=== PATIENT | male | born 1970 | race African-American/Black ===

== ENCOUNTER 2020-11-22 09:29 | Emergency (ER) | payer MEDICAID, SELFPAY ==
--- NOTE | ~2020-11-22 | XR_ITS ---
EXAMINATION: XR SHOULDER, RIGHT CLINICAL INFORMATION: Right shoulder pain COMPARISON: None TECHNIQUE: AP external rotation, Grashey, scapular Y, and axillary views of the right shoulder. FINDINGS: The bones and soft tissues are normal. No fracture. Glenohumeral and acromioclavicular alignment is anatomic with normal joint space. No abnormal soft tissue calcifications. XR/XR shoulder RT min 2V IMPRESSION: Normal right shoulder.
[2020-11-22 09:31] VITALS: BP 151/83; PULSE 78; RESP 16; TEMP 36.6; O2SAT 98; BMI 31.2
--- NOTE | 2020-11-22 09:56 | ED.EXTPRO ---
HPI - Extremity Problem General Chief complaint: Extremity Injury, Upper Stated complaint: rt shoulder pain Time Seen by Provider: 11/22/20 09:52 Source: patient Mode of arrival: ambulatory Limitations: no limitations History of Present Illness HPI Narrative: Patient presents to ED for right shoulder pain that has worsened the past 4 days. Patient states he fell on his right shoulder 2 months ago and since has had pain. He denies any recent trauma,. Patient states no swelling of extremity, redness, hotness, coldness, bluish discoloration of extremity, chest pain, shortness of breath, fever, chills, or any mass. Patient denies any history of any blood clots. patient denies any recent surgery, recent trauma, estrogen hormonal use, chest pain, or shortness of breath. Patient denies any recent long travel. MD Complaint: joint swelling (shoulder) Related Data Previous Rx's Medication Instructions Recorded lidocaine [Aspercreme (lidocaine 1 patch TOPICAL DAILY PRN #10 ea 11/22/20 HCl)] naproxen 500 mg PO BID PRN #20 tab 11/22/20 Allergies Allergy/AdvReac Type Severity Reaction Status Date / Time lisinopril Allergy Anaphylaxis Verified 11/22/20 09:45 Review of Systems Review of Systems: Yes all other systems are reviewed and are negative Constitutional: Constitutional: Reports as per HPI and Reports no additional constitutional complaints Eyes: Eyes: Reports as per HPI and Reports no additional eye complaints ENT: Reports system reviewed and no additional complaints, except as documented and Reports as per HPI Cardiovascular: Cardiovascular: Reports as per HPI and Reports no additional cardiovascular complaints Respiratory: Respiratory: Reports as per HPI and Reports no additional respiratory complaints Gastrointestinal: Gastrointestinal: Reports as per HPI and Reports no additional gastrointestinal complaints Genitourinary: Genitourinary: Reports no additional male genitourinary complaints and Reports as per HPI Musculoskeletal: Musculoskeletal: Reports no additional musculoskeletal complaints, Reports as per HPI and Reports arthralgias (Right shoulder pain) Neurologic: Reports system reviewed and no additional complaints, except as documented and Reports as per HPI Psychiatric: Psychiatric: Reports no additional psychiatric complaints and Reports as per HPI [facility] Past Medical History Medical History (Updated 11/22/20 @ 11:11 by PABLO Castellano) HTN (hypertension) Social History Social History Advance Directives: No Advance Directives Information Provided: No Physical Exam Vital Signs: Vital Signs: Last Vital Signs Temp 98 F 11/22/20 09:31 Pulse 78 11/22/20 09:31 Resp 16 11/22/20 09:31 BP 151/83 H 11/22/20 09:31 Pulse Ox 98 11/22/20 09:31 Body Mass Index 31.2 Const: General: cooperative, healthy appearing, comfortable, no acute distress, well developed, alert, awake and Physically active Orientation/consciousness: patient oriented x3 HENMT: Head: Yes normal to inspection, Yes No palpable skull fracture present, Yes normocephalic, Yes atraumatic and No abrasion Eyes: General: appearance normal, both eyes and all related structures Neck: Neck: Yes normal visual inspection, Yes full ROM, Yes no meningeal signs, Yes trachea midline, Yes supple and No tender Chest: Chest palpation & inspection: normal inspection of the chest and normal palpation of entire chest wall Resp: Effort & Inspection: normal respiratory effort and able to speak in complete sentences Auscultation: clear to auscultation bilaterally Cardio: Jugular venous distension: no JVD Heart sounds: S1 normal heart sound present and S2 normal heart sound present GI: Inspection: Yes normal to inspection and No abdominal wall ecchymosis Palpation (GI): Soft to palpation, not firm, nontender, no guarding and not rigid : General: No CVA tenderness Back/Spine/Pelvis: Back: no CVA tenderness, No CVA tenderness and No back tenderness Skin: General skin exam: no rashes or lesions noted and elasticity normal Neuro: General: patient oriented x3, gait normal, no meningeal signs and CN's II-XI intact bilaterally Cranial nerves: Yes CN's II-XII intact bilaterally Extrem: General: Yes normal to inspection and Yes full ROM Shoulder/upper arm images: 1. Area of tenderness on palpation. Right upper extremity negative for any swelling, redness, warmth, hotness, mass on palpation, coolness, red streaks, or any deformities. Motor/neuro/vascular exam intact. Positive for posterior right shoulder scar from previous surgery in the past. Psych: Appearance: grossly normal, well kempt and not disheveled Course Course Course Narrative: Patient will have right shoulder x-ray. Patient requesting lidocaine patch Reevaluation(s) Reevaluation #1: X-ray negative for fracture. Patient will follow-up with orthopedic for possible MRI due to history of shoulder surgery and having chronic right shoulder pain since trauma 2 months ago. Time: 11:05 MDM - Extremity (Nontraumatic) MDM Narrative Medical decision making narrative: Shoulder pain Discharge Plan Discharge Clinical Impression: Chronic right shoulder pain Patient Disposition: Home, Self-Care Instructions: Shoulder Pain (ED) Additional Instructions: Return to the ED for right upper extremity swelling, redness, blue discoloration, red streaks, fever, chills, mass, coldness, hotness, paralysis, weakness, tingling, or any other concerning symptoms. X-rays came back normal. Prescriptions: New lidocaine [Aspercreme (lidocaine HCl)] 4 % adhesive patch,medicated 1 patch topical DAILY PRN (Reason: pain) Qty: 10 RF: 0 naproxen 500 mg tablet 500 mg PO BID PRN (Reason: pain) Qty: 20 RF: 0 Referrals: Joshua Cantrell PA-C [Physician Guest Relations Receptionist] - 2 days (Chronic right shoulder pain. History of shoulder surgery in the past. May need MRI) Interventions: ED Discharge Assessment Last Done: 11/22/20 11:29 Discharge Date/Time: 11/22/20 11:29 Print Language: Turkmen
[2020-11-22] MEDS: Lidocaine 4 % Patch ADH..PATCH 1 PATCH TRANSDERMA (10:25)
== END 2020-11-22 11:29 | disposition home or self-care (01) ==
PROVIDERS: Emergency Provider Emergency Medicine
DX: G89.29 Other chronic pain (principal); M25.511 Pain in right shoulder; I10 Essential (primary) hypertension
CPT/HCPCS: 73030; 99283

== ENCOUNTER 2021-03-04 17:36 | Emergency (ER) | payer MEDICAID, SELFPAY ==
[2021-03-04 18:00] VITALS: BP 144/70; BP 154/87; PULSE 83; PULSE 92; RESP 16; TEMP 37.1; O2SAT 100; O2SAT 99; BMI 33.5
--- NOTE | 2021-03-04 18:43 | MHC.RECOVSUP ---
? Reason for consult Recovery support o Current location: [facility] o Identified substance use concern: [place] <del>-</del> <del>Overdose</del> <del>-</del> <del>Withdrawal</del> <del>-</del> <del>Seeking</del> <del>ATS</del> <del>(detox)</del> - Support ? Intervention: <del>o</del> <del>ATS</del> <del>bed</del> <del>search</del> <del>started/completed/in</del> <del>process</del> <del>o</del> <del>MAT</del> <del>started</del> <del>or</del> <del>to</del> <del>be</del> <del>started</del> o Community resources provided o Harm reduction discussion ? Plan: <del>o</del> <del>Referral</del> <del>to</del> <del>[facility]</del> <del>o</del> <del>Bed</del> <del>search</del> <del>in</del> <del>progress</del> <del>to</del> <del>o</del> <del>Follow</del> <del>up</del> <del>tomorrow</del> o Patient awaiting crisis evaluation o Patient to follow up with [facility] after discharge ? Additional information: Patient is waiting to be seen by N, After evaluation we would be ready to assist Patient with further Recovery treatment. I reported the situation to the care team to follow up with patient in the Morning...
[2021-03-04 19:31] LABS: COVID-19 Test Negative (Negative)
--- NOTE | 2021-03-04 19:55 | ED.PSYCH ---
HPI - Psych General Chief Complaint: Psychiatric Symptoms Stated Complaint: SI Source: patient Mode of arrival: ambulatory Limitations: no limitations History of Present Illness HPI Narrative: Patient presents to ED for depression and thoughts of hurting others and hurting himself. Patient denies any suicidal ideation, but he states he had thoughts of attempting a robbery on a drug dealer so he either he could be killed or he killed the robber. Patient was seen at [facility] ER this morning, evaluated by [facility] was discharged. Patient states she is homeless. Patient states he lost his job since last year May. Patient states he went back on a crack binge. MD complaint: feels depressed Related Data Home Medications Medication Instructions Recorded Confirmed chlorthalidone 25 mg tablet 1 tab PO DAILY 03/04/21 03/04/21 Previous Rx's Medication Instructions Recorded lidocaine 4 % topical patch 1 patch TOPICAL DAILY PRN #10 ea 11/22/20 (Aspercreme (lidocaine)) naproxen 500 mg tablet 500 mg PO BID PRN #20 tab 11/22/20 Allergies Allergy/AdvReac Type Severity Reaction Status Date / Time lisinopril Allergy Anaphylaxis Verified 11/22/20 09:45 Review of Systems Review of Systems: Yes all other systems are reviewed and are negative Constitutional: Constitutional: Reports as per HPI and Reports no additional constitutional complaints Eyes: Eyes: Reports as per HPI and Reports no additional eye complaints ENT: Reports system reviewed and no additional complaints, except as documented and Reports as per HPI Cardiovascular: Cardiovascular: Reports as per HPI and Reports no additional cardiovascular complaints Respiratory: Respiratory: Reports as per HPI and Reports no additional respiratory complaints Gastrointestinal: Gastrointestinal: Reports as per HPI and Reports no additional gastrointestinal complaints Musculoskeletal: Musculoskeletal: Reports no additional musculoskeletal complaints and Reports as per HPI Neurologic: Reports system reviewed and no additional complaints, except as documented and Reports as per HPI Psychiatric: Psychiatric: Reports no additional psychiatric complaints, Reports as per HPI and Reports depression [facility] Past Medical History Medical History (Updated 03/04/21 @ 22:12 by PABLO Castellano) HTN (hypertension) Social History Social History Advance Directives: No Advance Directives Information Provided: No Physical Exam Vital Signs: Vital Signs: Last Vital Signs Temp 98.7 F 03/04/21 18:00 Pulse 83 03/04/21 18:00 Resp 16 03/04/21 18:00 BP 154/87 H 03/04/21 18:00 Pulse Ox 100 03/04/21 18:00 Body Mass Index 33.5 Const: General: cooperative, healthy appearing, comfortable, no acute distress, well developed, alert, awake and Physically active Orientation/consciousness: patient oriented x3 HENMT: Head: Yes normal to inspection, Yes No palpable skull fracture present, Yes normocephalic, Yes atraumatic and No abrasion Eyes: General: appearance normal, both eyes and all related structures Neck: Neck: Yes normal visual inspection, Yes full ROM, Yes no lymphadenopathy, Yes no meningeal signs, Yes trachea midline, Yes supple and No tender Chest: Chest palpation & inspection: normal inspection of the chest and normal palpation of entire chest wall Resp: Effort & Inspection: normal respiratory effort and able to speak in complete sentences Cardio: Jugular venous distension: no JVD Heart sounds: S1 normal heart sound present and S2 normal heart sound present GI: Inspection: Yes normal to inspection and No abdominal wall ecchymosis Palpation (GI): Soft to palpation, not firm, nontender, no guarding and not rigid : General: No CVA tenderness and Yes no CVA tenderness Back/Spine/Pelvis: Back: no CVA tenderness, No CVA tenderness and No back tenderness Skin: General skin exam: no rashes or lesions noted and elasticity normal Neuro: General: patient oriented x3, gait normal, no meningeal signs and CN's II-XI intact bilaterally Cranial nerves: Yes CN's II-XII intact bilaterally Extrem: General: Yes normal to inspection and Yes full ROM Psych: Appearance: grossly normal, well kempt and not disheveled Course Course Course Narrative: Patient will be evaluated by [employer]. BRAVO ordered. Reevaluation(s) Reevaluation #1: Evaluated by [facility] consulting states patient is safe for discharge. Patient is not actively suicidal or homicidal. Patient refused respite and partial hospitalization. Patient does not meet criteria for inpatient admission. Patient will be able to sleep overnight will be discharged in the morning. Patient agreeable to sleep overnight and leaving the morning.Sign out to Dr. Yasmani Rodriguez for discharge in the morning. Time: 22:06 MDM - Psych MDM Narrative Medical decision making narrative: Substance abuse Lab Data Labs: Lab Results 03/04/21 03/04/21 Range/Units 19:06 19:55 Urine Opiates Screen Not Detected (Not Detect) Urine Fentanyl Screen Not Detected (Not Detect) Ur Barbiturates Screen Not Detected (Not Detect) Ur Phencyclidine Scrn POSITIVE H (Not Detect) Ur Amphetamines Screen Not Detected (Not Detect) U Benzodiazepines Scrn Not Detected (Not Detect) Urine Cocaine Screen POSITIVE H (Not Detect) U Marijuana (THC) Screen Not Detected (Not Detect) COVID-19 (PAVEL) Negative (Negative) COVID-19 Clin Com See Note Discharge Plan Discharge Clinical Impression: Substance abuse Patient Disposition: Home, Self-Care Instructions: Polysubstance Abuse (ED) Additional Instructions: Return to the ED for any suicidal/homicidal ideation, auditory/visual hallucinations, any physical complaints, or any other concerning symptoms. Please follow-up with PCP. Prescriptions: No Action lidocaine [Aspercreme (lidocaine HCl)] 4 % adhesive patch,medicated 1 patch topical DAILY PRN (Reason: pain) Qty: 10 RF: 0 naproxen 500 mg tablet 500 mg PO BID PRN (Reason: pain) Qty: 20 RF: 0 chlorthalidone 25 mg tablet 1 tab PO DAILY RF: 0 Print Language: Macedonian
[2021-03-04 20:29] LABS: Amphetamine Screen Urine Not Detected (Not Detect); Barbiturates, Urine Not Detected (Not Detect); Benzodiazepines Screen Urine Not Detected (Not Detect); Cannabinoid Screen Urine Not Detected (Not Detect); Cocaine Screen Urine POSITIVE (Not Detect); Fentanyl, urine Not Detected (Not Detect); Opiate Screen Urine Not Detected (Not Detect); Phencyclidine Screen Urine POSITIVE (Not Detect)
--- NOTE | 2021-03-05 06:36 | PC.NURSE ---
Patient slept through the night, no distress observed/reported, [facility] assessed the patient, patient refused respite plan, per patient does not require inpatient level of care, patient agreed to d/c plan in the morning, if he needs he can either go to N office or call [facility] for help, provider aware, d/c paper ready, will continue to monitor,
--- NOTE | 2021-03-05 09:34 | PC.NURSE ---
PT TOOK A SHOWER PRIOR TO D/C HOME .
--- NOTE | 2021-03-05 10:00 | PC.NURSE ---
PT IS IN COMMON AREA SPEAKING WITH GHAZAL (CARE TEAM)
[2021-03-05 10:18] VITALS: BP 145/109
--- NOTE | 2021-03-05 10:40 | PC.NURSE ---
PER PABLO (JANUARY) AND GHAZAL (CARE TEAM), CARE TEAM WILL BE FOLLOWING UP WITH [facility] TO SEE IF THERE ARE ANY ADDITIONAL SERVICES SUCH RESPITE THAT WOULD BE AVAILABLE TO THE PT. PT D/C IS ON HOLD AT THIS TIME. PT HAS BEEN CHANGED OVER TO [facility] WITH SECURITY IN ATTENDANCE AND ALL BELONGINGS CHECKED AND LOCKED IN LOCKER. PT IS AWARE OF PLAN OF CARE.
[2021-03-05 11:44] VITALS: BP 153/103; PULSE 82; RESP 14; TEMP 36.8; O2SAT 100
--- NOTE | 2021-03-05 11:48 | PC.NURSE ---
New smart sheet sent to [facility]. Per Melissa from Care team there is a pushback at [facility] to send the report of their eval. There is the question of need for re-eval at this time. Pt resting quietly in his bed, NAD, resp reg and even.
[2021-03-05 13:39] VITALS: BP 140/97
--- NOTE | 2021-03-05 13:46 | MHC.CARE ---
When patient was discharging this morning he asked to speak with a clinician. CARE Team met with patient in the common area behind the nurse's station. He stated that he feels certain that he would commit suicide if discharged at this time. Acknowledged that he was not engaged with the [facility] clinician last evening, denied being offered CCS (Respite), patient said he believes he needs a mood stabilizer and does not have any outpatient providers. Discussed PHP and referrals to therapy and psychiatry, patient continued to endorse suicidal ideation with plan to get shot by someone in the community. Communicated with ED provider, RN and fast food supervisor. By report, [facility] explained to provider yesterday that this is patient's baseline behavior. CARE Team reached out to [facility] Crisis to obtain patient's written assessment
== END 2021-03-05 16:01 | disposition home or self-care (01) ==
PROVIDERS: Physician Assistant; Emergency Provider Emergency Medicine
DX: F33.1 Major depressive disorder, recurrent, moderate (principal); R45.851 Suicidal ideations; F14.10 Cocaine abuse, uncomplicated; Z20.822 Contact with and (suspected) exposure to COVID-19; Z79.899 Other long term (current) drug therapy
CPT/HCPCS: 36415; 80307; 87635; 99284

== ENCOUNTER 2021-03-08 03:24 | Emergency (ER) | payer MEDICAID, SELFPAY ==
[2021-03-08 03:31] VITALS: BP 156/96; PULSE 80; PULSE 97; RESP 16; TEMP 36.8; O2SAT 97; BMI 30.9
--- NOTE | 2021-03-08 03:39 | ED_ITS ---
HPI - Psych General Chief Complaint: ETOH/Substance Use <Juan F Wright MD - Last Filed: 03/08/21 05:47> Stated Complaint: ETOH INTOX <Juan F Wright MD - Last Filed: 03/08/21 05:47> Time Seen by Provider: 03/08/21 03:38 <Juan F Wright MD - Last Filed: 03/08/21 05:47> Source: patient <Juan F Wright MD - Last Filed: 03/08/21 05:47> Mode of arrival: ambulatory <Juan F Wright MD - Last Filed: 03/08/21 05:47> Limitations: no limitations <Juan F Wright MD - Last Filed: 03/08/21 05:47> History of Present Illness HPI Narrative: Patient with increased depression and feels anxious. New family stress. Patient with shoulder and knee problems. Patient with auditory hallucinations <Juan F Wright MD - Last Filed: 03/08/21 05:47> MD complaint: suicidal ideation <Juan F Wright MD - Last Filed: 03/08/21 05:47> Onset (ago): day(s) <Juan F Wright MD - Last Filed: 03/08/21 05:47> Duration: intermittent <Juan F Wright MD - Last Filed: 03/08/21 05:47> Context: recent alcohol abuse <Juan F Wright MD - Last Filed: 03/08/21 05:47> Associated symptoms: denies other symptoms <Juan F Wright MD - Last Filed: 03/08/21 05:47> Related Data Home Medications: Home Medications Medication Instructions Recorded Confirmed chlorthalidone 25 mg tablet 1 tab PO DAILY 03/04/21 03/08/21 Previous Rx's Medication Instructions Recorded lidocaine 4 % topical patch 1 patch TOPICAL DAILY PRN #10 ea 11/22/20 (Aspercreme (lidocaine)) naproxen 500 mg tablet 500 mg PO BID PRN #20 tab 11/22/20 <Juan F Wright MD - Last Filed: 03/08/21 05:47> Allergies/Adverse Reactions: Allergies Allergy/AdvReac Type Severity Reaction Status Date / Time lisinopril Allergy Anaphylaxis Verified 11/22/20 09:45 <Juan F Wright MD - Last Filed: 03/08/21 05:47> Review of Systems Constitutional: Constitutional: Reports no additional constitutional com plaints <Juan F Wright MD - Last Filed: 03/08/21 05:47> Eyes: Eyes: Reports no additional eye complaints <Juan F Wright MD - Last Filed: 03/08/21 05:47> ENT: Denies dizziness <Juan F Wright MD - Last Filed: 03/08/21 05:47> Cardiovascular: Cardiovascular: Reports no additional cardiovascular complaints <Juan F Wright MD - Last Filed: 03/08/21 05:47> Respiratory: Respiratory: Reports as per HPI <Juan F Wright MD - Last Filed: 03/08/21 05:47> Gastrointestinal: Gastrointestinal: Reports no additional gastrointestinal complaints <Juan F Wright MD - Last Filed: 03/08/21 05:47> Musculoskeletal: Musculoskeletal: Reports no additional musculoskeletal complaints <Juan F Wright MD - Last Filed: 03/08/21 05:47> Integumentary/Breasts: Skin/Breast: Denies rash <Juan F Wright MD - Last Filed: 03/08/21 05:47> Neurologic: Reports system reviewed and no additional complaints, except as documented, Denies dizziness and Denies Sensory deficit (Neuro) <Juan F Wright MD - Last Filed: 03/08/21 05:47> Psychiatric: Psychiatric: Reports anxiety <Juan F Wright MD - Last Filed: 03/08/21 05:47> [facility] Past Medical History Medical History: Medical History HTN (hypertension) <Juan F Wright MD - Last Filed: 03/08/21 05:47> Social History Social History: Social History Advance Directives: No Advance Directives Information Provided: Yes <Juan F Wright MD - Last Filed: 03/08/21 05:47> Physical Exam Vital Signs: Vital Signs: Last Vital Signs Temp 98.2 F 03/08/21 09:56 Pulse 89 03/08/21 09:56 Resp 18 03/08/21 09:56 BP 137/88 03/08/21 09:56 Pulse Ox 97 03/08/21 09:56 Body Mass Index 30.9 <Juan F Wright MD - Last Filed: 03/08/21 05:47> Vital Signs: Last Vital Signs Temp 98.2 F 03/08/21 09:56 Pulse 89 03/08/21 09:56 Resp 18 03/08/21 09:56 BP 137/88 03/08/21 09:56 Pulse Ox 97 03/08/21 09:56 Body Mass Index 30.9 <PABLO Chase - Last Filed: 03/08/21 12:11> Const: General: healthy appearing <Juan F Wright MD - Last Filed: 03/08/21 05:47> Nutritional Appearance: average body habitus <Juan F Wright MD - Last Filed: 03/08/21 05:47> Orientation/consciousness: oriented to person and patient oriented x3 <Juan F Wright MD - Last Filed: 03/08/21 05:47> Limitations: no limitations <Juan F Wright MD - Last Filed: 03/08/21 05:47> HENMT: Head: Yes normal to inspection <Juan F Wright MD - Last Filed: 03/08/21 05:47> Ears: external ears normal <Juan F Wright MD - Last Filed: 03/08/21 05:47> General nose exam: Normal external nose present <Juan F Wright MD - Last Filed: 03/08/21 05:47> Mouth: Normal oral and palatal mucosa present and oropharynx normal <Juan F Wright MD - Last Filed: 03/08/21 05:47> Throat: Yes posterior oropharynx normal <Juan F Wright MD - Last Filed: 03/08/21 05:47> Eyes: General: appearance normal, both eyes and all related structures <Juan F Wright MD - Last Filed: 03/08/21 05:47> Neck: Other: supple <Juan F Wright MD - Last Filed: 03/08/21 05:47> Neck: Yes normal visual inspection <Juan F Wright MD - Last Filed: 03/08/21 05:47> Chest: Chest palpation & inspection: normal inspection of the chest <Juan F Wright MD - Last Filed: 03/08/21 05:47> Resp: Auscultation: clear to auscultation bilaterally <Juan F Wright MD - Last Filed: 03/08/21 05:47> Cardio: Jugular venous distension: no JVD <Juan F Wright MD - Last Filed: 03/08/21 05:47> Rate: regular rate <Juan F Wright MD - Last Filed: 03/08/21 05:47> Rhythm: regular rhythm <Juan F Wright MD - Last Filed: 03/08/21 05:47> Heart sounds: S1 normal heart sound present and S2 normal heart sound present <Juan F Wright MD - Last Filed: 03/08/21 05:47> GI: Inspection: Yes normal to inspection <Juan F Wright MD - Last Filed: 03/08/21 05:47> Palpation (GI): Soft to palpation, nontender and No hepatosplenomegaly present <Juan F Wright MD - Last Filed: 03/08/21 05:47> Auscultation: normal bowel sounds <Juan F Wright MD - Last Filed: 03/08/21 05:47> : General: Yes no CVA tenderness <Juan F Wright MD - Last Filed: 03/08/21 05:47> Back/Spine/Pelvis: Back: no CVA tenderness <Juan F Wright MD - Last Filed: 03/08/21 05:47> Skin: General skin exam: no rashes or lesions noted <Juan F Wright MD - Last Filed: 03/08/21 05:47> Neuro: General: oriented to person and patient oriented x3 <Juan F Wright MD - Last Filed: 03/08/21 05:47> Cranial nerves: Yes CN's II-XII intact bilaterally <Juan F Wright MD - Last Filed: 03/08/21 05:47> Motor exam (neuro): 5/5 motor strength present throughout <Juan F Wright MD - Last Filed: 03/08/21 05:47> Sensory Exam: No Sensory deficit (Neuro) <Juan F Wright MD - Last Filed: 03/08/21 05:47> Extrem: General: Yes normal to inspection <Juan F Wright MD - Last Filed: 03/08/21 05:47> Psych: Appearance: grossly normal <Juan F Wright MD - Last Filed: 03/08/21 05:47> Course Reevaluation(s) Reevaluation #1: Patient placed in physician observation at 6am The indication for obse rvation is that the patient needs more time to see if his depression improves or he will need to be admitted. At this time the patient is well developed well nourished, lungs clear, CV RRR, abd nontender, neuro is intact <Juan F Wright MD - Last Filed: 03/08/21 05:47> Time: 05:47 <Juan F Wright MD - Last Filed: 03/08/21 05:47> Reevaluation #2: Patient seen by CARE team. He is not suicidal at this time. He is depressed. Admits to drinking occasionally but says he's not an addict and does not want recovery services. Phil made referrals to [facility] and partial program which he is agreeable to. At this time he is stable for discharge with outpatient services. Physician observation discontinued at this time. Dispo is to home. <PABLO Chase - Last Filed: 03/08/21 12:11> Time: 12:08 <PABLO Chase - Last Filed: 03/08/21 12:11> MDM - Psych Lab Data Result diagrams: : 03/08/21 03:58 03/08/21 03:58 <Juan F Wright MD - Last Filed: 03/08/21 05:47> Labs: Lab Results 03/08/21 03/08/21 03/08/21 Range/Units 03:58 03:58 03:58 WBC 8.3 (4.8-10.8) X10*3/uL RBC 5.60 (4.60-5.80) X10*6/uL Hgb 16.6 (14.0-18.0) g/dl Hct 47.9 (42-52) % MCV 85.5 (80-98) fL MCH 29.6 (27.0-33.0) pg MCHC 34.7 (31.0-36.0) g/dl RDW 12.8 (11.0-16.0) % Plt Count 275 (160-400) X10*3/uL MPV 10.5 (9.4-12.4) fL Immature Gran % (Auto) 0.1 (0.0-0.4) % Neut % (Auto) 64.9 (45-73) % Lymph % (Auto) 23.1 (20-40) % [place] % (Auto) 8.3 (2-11) % Eos % (Auto) 2.8 (0-4) % Baso % (Auto) 0.8 (0-2) % Lymph # (Auto) 1.9 (1.2-4.9) X10*3/uL [place] # (Auto) 0.7 (0.1-1.2) X10*3/uL Eos # (Auto) 0.2 (0.0-0.4) X10*3/uL Baso # (Auto) 0.1 (0.0-0.2) X10*3/uL Abs Immat Gran (auto) 0.01 (0.00-0.03) X10*3/uL Absolute Neuts (auto) 5.4 (2.0-8.3) X10*3/uL Absolute Nucleated RBC 0.000 (0.0-0.012) X10*3/uL Nucleated RBC % (auto) 0.0 (0.0-0.2) /100WBC Sodium 139 (135-145) mmol/L Potassium 3.8 (3.3-5.1) mmol/L Chloride 99 (96-108) mmol/L Carbon Dioxide 28 (22-29) mmol/L Anion Gap 16 (12-20) BUN 13 (9-16) mg/dL Creatinine 1.43 H (0.5-1.4) mg/dL Estim Creat Clear Calc 80.9 Estimated GFR 53 POC Glucose (60-115) mg/dL Random Glucose 94 (60-115) mg/dL Calcium 9.5 (8.4-10.2) mg/dL Total Bilirubin 0.5 (0.0-1.0) mg/dL AST 47 H (5-37) U/L ALT 35 (0-40) U/L Alkaline Phosphatase 97 (39-117) U/L Total Protein 8.5 H (6.5-8.0) g/dL Albumin 4.2 (3.5-5.0) g/dL Salicylates < 5.0 L (15-30) mg/dL Urine Opiates Screen Not Detected (Not Detect) Urine Fentanyl Screen POSITIVE H (Not Detect) Acetaminophen < 1 (<30) mcg/mL Ur Barbiturates Screen Not Detected (Not Detect) Ur Phencyclidine Scrn Not Detected (Not Detect) Ur Amphetamines Screen Not Detected (Not Detect) U Benzodiazepines Scrn Not Detected (Not Detect) Urine Cocaine Screen POSITIVE H (Not Detect) U Marijuana (THC) Screen Not Detected (Not Detect) Ethyl Alcohol mg/dL COVID-19 (PAVEL) (Negative) COVID-19 Clin Com 03/08/21 03/08/21 03/08/21 Range/Units 03:58 06:50 09:45 WBC (4.8-10.8) X10*3/uL RBC (4.60-5.80) X10*6/uL Hgb (14.0-18.0) g/dl Hct (42-52) % MCV (80-98) fL MCH (27.0-33.0) pg MCHC (31.0-36.0) g/dl RDW (11.0-16.0) % Plt Count (160-400) X10*3/uL MPV (9.4-12.4) fL Immature Gran % (Auto) (0.0-0.4) % Neut % (Auto) (45-73) % Lymph % (Auto) (20-40) % [place] % (Auto) (2-11) % Eos % (Auto) (0-4) % Baso % (Auto) (0-2) % Lymph # (Auto) (1.2-4.9) X10*3/uL [place] # (Auto) (0.1-1.2) X10*3/uL Eos # (Auto) (0.0-0.4) X10*3/uL Baso # (Auto) (0.0-0.2) X10*3/uL Abs Immat Gran (auto) (0.00-0.03) X10*3/uL Absolute Neuts (auto) (2.0-8.3) X10*3/uL Absolute Nucleated RBC (0.0-0.012) X10*3/uL Nucleated RBC % (auto) (0.0-0.2) /100WBC Sodium (135-145) mmol/L Potassium (3.3-5.1) mmol/L Chloride (96-108) mmol/L Carbon Dioxide (22-29) mmol/L Anion Gap (12-20) BUN (9-16) mg/dL Creatinine (0.5-1.4) mg/dL Estim Creat Clear Calc Estimated GFR POC Glucose 94 (60-115) mg/dL Random Glucose (60-115) mg/dL Calcium (8.4-10.2) mg/dL Total Bilirubin (0.0-1.0) mg/dL AST (5-37) U/L ALT (0-40) U/L Alkaline Phosphatase (39-117) U/L Total Protein (6.5-8.0) g/dL Albumin (3.5-5.0) g/dL Salicylates (15-30) mg/dL Urine Opiates Screen (Not Detect) Urine Fentanyl Screen (Not Detect) Acetaminophen (<30) mcg/mL Ur Barbiturates Screen (Not Detect) Ur Phencyclidine Scrn (Not Detect) Ur Amphetamines Screen (Not Detect) U Benzodiazepines Scrn (Not Detect) Urine Cocaine Screen (Not Detect) U Marijuana (THC) Screen (Not Detect) Ethyl Alcohol < 10 mg/dL COVID-19 (PAVEL) Negative (Negative) COVID-19 Clin Com See Note <Juan F Wright MD - Last Filed: 03/08/21 05:47> Lab Results 03/08/21 03/08/21 03/08/21 Range/Units 03:58 03:58 03:58 WBC 8.3 (4.8-10.8) X10*3/uL RBC 5.60 (4.60-5.80) X10*6/uL Hgb 16.6 (14.0-18.0) g/dl Hct 47.9 (42-52) % MCV 85.5 (80-98) fL MCH 29.6 (27.0-33.0) pg MCHC 34.7 (31.0-36.0) g/dl RDW 12.8 (11.0-16.0) % Plt Count 275 (160-400) X10*3/uL MPV 10.5 (9.4-12.4) fL Immature Gran % (Auto) 0.1 (0.0-0.4) % Neut % (Auto) 64.9 (45-73) % Lymph % (Auto) 23.1 (20-40) % [place] % (Auto) 8.3 (2-11) % Eos % (Auto) 2.8 (0-4) % Baso % (Auto) 0.8 (0-2) % Lymph # (Auto) 1.9 (1.2-4.9) X10*3/uL [place] # (Auto) 0.7 (0.1-1.2) X10*3/uL Eos # (Auto) 0.2 (0.0-0.4) X10*3/uL Baso # (Auto) 0.1 (0.0-0.2) X10*3/uL Abs Immat Gran (auto) 0.01 (0.00-0.03) X10*3/uL Absolute Neuts (auto) 5.4 (2.0-8.3) X10*3/uL Absolute Nucleated RBC 0.000 (0.0-0.012) X10*3/uL Nucleated RBC % (auto) 0.0 (0.0-0.2) /100WBC Sodium 139 (135-145) mmol/L Potassium 3.8 (3.3-5.1) mmol/L Chloride 99 (96-108) mmol/L Carbon Dioxide 28 (22-29) mmol/L Anion Gap 16 (12-20) BUN 13 (9-16) mg/dL Creatinine 1.43 H (0.5-1.4) mg/dL Estim Creat Clear Calc 80.9 Estimated GFR 53 POC Glucose (60-115) mg/dL Random Glucose 94 (60-115) mg/dL Calcium 9.5 (8.4-10.2) mg/dL Total Bilirubin 0.5 (0.0-1.0) mg/dL AST 47 H (5-37) U/L ALT 35 (0-40) U/L Alkaline Phosphatase 97 (39-117) U/L Total Protein 8.5 H (6.5-8.0) g/dL Albumin 4.2 (3.5-5.0) g/dL Salicylates < 5.0 L (15-30) mg/dL Urine Opiates Screen Not Detected (Not Detect) Urine Fentanyl Screen POSITIVE H (Not Detect) Acetaminophen < 1 (<30) mcg/mL Ur Barbiturates Screen Not Detected (Not Detect) Ur Phencyclidine Scrn Not Detected (Not Detect) Ur Amphetamines Screen Not Detected (Not Detect) U Benzodiazepines Scrn Not Detected (Not Detect) Urine Cocaine Screen POSITIVE H (Not Detect) U Marijuana (THC) Screen Not Detected (Not Detect) Ethyl Alcohol mg/dL COVID-19 (PAVEL) (Negative) COVID-19 Clin Com 03/08/21 03/08/21 03/08/21 Range/Units 03:58 06:50 09:45 WBC (4.8-10.8) X10*3/uL RBC (4.60-5.80) X10*6/uL Hgb (14.0-18.0) g/dl Hct (42-52) % MCV (80-98) fL MCH (27.0-33.0) pg MCHC (31.0-36.0) g/dl RDW (11.0-16.0) % Plt Count (160-400) X10*3/uL MPV (9.4-12.4) fL Immature Gran % (Auto) (0.0-0.4) % Neut % (Auto) (45-73) % Lymph % (Auto) (20-40) % [place] % (Auto) (2-11) % Eos % (Auto) (0-4) % Baso % (Auto) (0-2) % Lymph # (Auto) (1.2-4.9) X10*3/uL [place] # (Auto) (0.1-1.2) X10*3/uL Eos # (Auto) (0.0-0.4) X10*3/uL Baso # (Auto) (0.0-0.2) X10*3/uL Abs Immat Gran (auto) (0.00-0.03) X10*3/uL Absolute Neuts (auto) (2.0-8.3) X10*3/uL Absolute Nucleated RBC (0.0-0.012) X10*3/uL Nucleated RBC % (auto) (0.0-0.2) /100WBC Sodium (135-145) mmol/L Potassium (3.3-5.1) mmol/L Chloride (96-108) mmol/L Carbon Dioxide (22-29) mmol/L Anion Gap (12-20) BUN (9-16) mg/dL Creatinine (0.5-1.4) mg/dL Estim Creat Clear Calc Estimated GFR POC Glucose 94 (60-115) mg/dL Random Glucose (60-115) mg/dL Calcium (8.4-10.2) mg/dL Total Bilirubin (0.0-1.0) mg/dL AST (5-37) U/L ALT (0-40) U/L Alkaline Phosphatase (39-117) U/L Total Protein (6.5-8.0) g/dL Albumin (3.5-5.0) g/dL Salicylates (15-30) mg/dL Urine Opiates Screen (Not Detect) Urine Fentanyl Screen (Not Detect) Acetaminophen (<30) mcg/mL Ur Barbiturates Screen (Not Detect) Ur Phencyclidine Scrn (Not Detect) Ur Amphetamines Screen (Not Detect) U Benzodiazepines Scrn (Not Detect) Urine Cocaine Screen (Not Detect) U Marijuana (THC) Screen (Not Detect) Ethyl Alcohol < 10 mg/dL COVID-19 (PAVEL) Negative (Negative) COVID-19 Clin Com See Note <PABLO Chase - Last Filed: 03/08/21 12:11> Discharge Plan Discharge Clinical Impression: Depression Qualifiers: Depression Type: major depressive disorder Major depression recurrence: unspecified whether recurrent Active/Remission status: currently active Major depression episode severity: unspecified Qualified Code(s): F32.9 - Major depressive disorder, single episode, unspecified <Juan F Wright MD - Last Filed: 03/08/21 05:47> Instructions: Depression (ED), Polysubstance Abuse (ED) <Juan F Wright MD - Last Filed: 03/08/21 05:47> Additional Instructions: Your blood work showed some very mild kidney disease - recommend following up with your doctor in 1 week for repeat blood work. DO NOT USE COCAINE OR ANY OTHER DRUGS - your urine tests showed +cocaine and fentanyl Recommend detox Follow up with the primary [facility] program and [facility] If you develop new or worsening symptoms call 911 or come back to the ER for further evaluation. <Juan F Wright MD - Last Filed: 03/08/21 05:47> Prescriptions: No Action lidocaine [Aspercreme (lidocaine HCl)] 4 % adhesive patch,medicated 1 patch topical DAILY PRN (Reason: pain) Qty: 10 RF: 0 naproxen 500 mg tablet 500 mg PO BID PRN (Reason: pain) Qty: 20 RF: 0 chlorthalidone 25 mg tablet 1 tab PO DAILY RF: 0 <Juan F Wright MD - Last Filed: 03/08/21 05:47>
[2021-03-08 04:04] LABS: Basophils Absolute Auto 0.1 X10*3/uL (0.0-0.2); Basophils Percent Auto 0.8 % (0-2); Eosinophils Absolute Auto 0.2 X10*3/uL (0.0-0.4); Eosinophils Percent Auto 2.8 % (0-4); Hematocrit 47.9 % (42-52); Hemoglobin 16.6 g/dl (14.0-18.0); Imm Gran Abs Auto 0.01 X10*3/uL (0.00-0.03); Imm Gran Pct Auto 0.1 % (0.0-0.4); Lymphocytes Absolute Auto 1.9 X10*3/uL (1.2-4.9); Lymphocytes Percent Auto 23.1 % (20-40); MANUAL DIFF FLAG NO; Mean Corpuscular HGB Conc 34.7 g/dl (31.0-36.0); Mean Corpuscular Hemoglobin 29.6 pg (27.0-33.0); Mean Corpuscular Volume 85.5 fL (80-98); Mean Platelet Volume 10.5 fL (9.4-12.4); Monocytes Absolute Auto 0.7 X10*3/uL (0.1-1.2); Monocytes Percent Auto 8.3 % (2-11); Neutrophils Absolute Auto 5.4 X10*3/uL (2.0-8.3); Neutrophils Percent Auto 64.9 % (45-73); Platelet Count 275 X10*3/uL (160-400); Red Cell Distribution Width 12.8 % (11.0-16.0); White Blood Count 8.3 X10*3/uL (4.8-10.8)
[2021-03-08 04:24] LABS: Ethanol < 10 mg/dL
[2021-03-08 04:26] LABS: Amphetamine Screen Urine Not Detected (Not Detect); Barbiturates, Urine Not Detected (Not Detect); Benzodiazepines Screen Urine Not Detected (Not Detect); Cannabinoid Screen Urine Not Detected (Not Detect); Cocaine Screen Urine POSITIVE (Not Detect); Fentanyl, urine POSITIVE (Not Detect); Opiate Screen Urine Not Detected (Not Detect); Phencyclidine Screen Urine Not Detected (Not Detect)
[2021-03-08 04:34] LABS: Acetaminophen LAB < 1 mcg/mL (<30); Alanine Aminotransferase 35 U/L (0-40); Albumin Level 4.2 g/dL (3.5-5.0); Alkaline Phosphatase 97 U/L (39-117); Anion Gap 16 (12-20); Aspartate Amino Transferase 47 U/L (5-37); Bilirubin Total 0.5 mg/dL (0.0-1.0); Blood Urea Nitrogen 13 mg/dL (9-16); Calcium 9.5 mg/dL (8.4-10.2); Carbon Dioxide 28 mmol/L (22-29); Chloride 99 mmol/L (96-108); Creatinine Clr Calc Pharmacy 80.9; Estimated Glomerular Filt Rate 53; Glucose Random 94 mg/dL (60-115); Potassium 3.8 mmol/L (3.3-5.1); Sodium 139 mmol/L (135-145); Total Protein 8.5 g/dL (6.5-8.0)
[2021-03-08 04:46] LABS: Salicylate < 5.0 mg/dL (15-30)
[2021-03-08 05:30] VITALS: PULSE 86; RESP 16; O2SAT 99
[2021-03-08 06:15] VITALS: BP 126/83; PULSE 104; RESP 18; TEMP 37.1; O2SAT 99
--- NOTE | 2021-03-08 06:18 | PC.NURSE ---
PT is sleeping in bed, respirations even and unlabored, and in nad. VSS. Referral for N crisis consult has been submitted.
[2021-03-08 06:54] LABS: Glucose, Whole Blood 94 mg/dL (60-115)
--- NOTE | 2021-03-08 07:06 | PC.NURSE ---
patient recent readmit, polysub abuse to be seen by crisis transferred over from ED and attempting to rest at present. respirations even and unlabored.
[2021-03-08 09:56] VITALS: BP 137/88; PULSE 89; RESP 18; TEMP 36.8; O2SAT 97
[2021-03-08 10:05] LABS: COVID-19 Test Negative (Negative)
[2021-03-08] MEDS: hydroCHLOROthiazide 25 MG TABLET PO (10:40)
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
== END 2021-03-08 13:45 | disposition home or self-care (01) ==
PROVIDERS: Physician Assistant; Emergency Provider Emergency Medicine
DX: F32.9 Major depressive disorder, single episode, unspecified (principal); R45.851 Suicidal ideations; Z20.822 Contact with and (suspected) exposure to COVID-19; Z79.899 Other long term (current) drug therapy
CPT/HCPCS: 36415; 80053; 80143; 80179; 80307; 82077; 82947; 85025; 87635; 99284